=== PATIENT | male | born 1990 | race Caucasian/White ===

== ENCOUNTER 2016-12-04 23:45 | Emergency (ER) | payer MEDICAID ==
[~2016-12-04] VITALS: Ht 167.6 cm; Wt 104.5 kg
[2016-12-05] MEDS ORDERED: IBUPROFEN 800 MG TABLET PO ONE (00:15)
[2016-12-05 00:36] VITALS: BP 137/77
== END 2016-12-05 00:36 | disposition home or self-care (01) ==
LOC: EMS 23:48
DX: S00.93XA Contusion of unspecified part of head, initial encounter (principal); J45.909 Unspecified asthma, uncomplicated; W22.8XXA Striking against or struck by other objects, initial encounter; Y93.89 Activity, other specified; Y92.89 Other specified places as the place of occurrence of the external cause; Y99.8 Other external cause status
CPT/HCPCS: 99282